=== PATIENT | female | born 1965 | race Caucasian/White ===

== ENCOUNTER → 2018-09-07 07:19 | Outpatient (CLI) | payer MEDICAID, SELFPAY ==
--- NOTE | 2018-09-07 10:44 | NEURO ---
NCS and/or EMG Patient Report Ordering Doctor: Ahsan Kapoor DATE OF SERVICE: 09/07/18 This is a right upper extremity EMG and nerve conduction study performed on this 53-year-old female with numbness tingling and throbbing in her right arm present for 5 to 8 months affecting all of the fingers in her right hand. She is healthy otherwise. There is no injury or trigger that she is aware of. Right upper extremity sensory and motor nerve conduction studies performed. The median motor distal latency is mildly prolonged with preservation of amplitude and conduction velocity. The ulnar motor and sensory and radial sensory responses are normal. The median sensory response is normal. Median ulnar F-wave latencies are normal. Right upper extremity needlelike tomography is performed. Muscles evaluate include the abductor pollicis brevis, brachial radialis, biceps, triceps, deltoid muscles and first dorsal interosseous muscles. There is mild increase in insertional activity in the abductor pollicis brevis muscle, however all other muscles demonstrated normal insertional activity without pathologic spontaneous activity, and motor unit recruitment pattern as well as amplitude was normal. 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
--- NOTE | 2018-09-07 10:48 | NEURO_ITS ---
NCS and/or EMG Patient Report Ordering Doctor: Ahsan Kapoor DATE OF SERVICE: 09/07/18 This is a right upper extremity EMG and nerve conduction study performed on this 53-year-old female with numbness tingling and throbbing in her right arm present for 5 to 8 months affecting all of the fingers in her right hand. She is healthy otherwise. There is no injury or trigger that she is aware of. Right upper extremity sensory and motor nerve conduction studies performed. The median motor distal latency is mildly prolonged with preservation of amplitude and conduction velocity. The ulnar motor and sensory and radial sensory responses are normal. The median sensory response is normal. Median ulnar F- wave latencies are normal. Right upper extremity needlelike tomography is performed. Muscles evaluate include the abductor pollicis brevis, brachial radialis, biceps, triceps, deltoid muscles and first dorsal interosseous muscles. There is mild increase in insertional activity in the abductor pollicis brevis muscle, however all other muscles demonstrated normal insertional activity without pathologic sponta neous activity, and motor unit recruitment pattern as well as amplitude was normal. 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
== END ==
PROVIDERS: Family Provider Nurse Practitioner Family; PCP Nurse Practitioner Family; Referring Provider Orthopaedic Surgery Hand Surgery
DX: G56.21 Lesion of ulnar nerve, right upper limb (principal)
CPT/HCPCS: 95886; 95910